=== PATIENT | female | born 1990 | race Caucasian/White ===

== ENCOUNTER 2019-01-27 04:52 | Inpatient (IN) ==
[2019-01-27] MEDS ORDERED: OXYTOCIN 30 UNITS/500 ML BAG IV PRN ×2 (05:31→16:57)
[2019-01-27] MEDS ORDERED: ePHEDrine sulfate 50 MG/ML AMP ONE (05:38)
[2019-01-27] MEDS ORDERED: fentaNYL 2MCG/ML ROPIV 1.25MG/ML 100 ML BAG EPI ONE (05:38)
[2019-01-27] MEDS ORDERED: BUPIVACAINE 0.25% 30 ML VIAL ONE (05:38)
[2019-01-27] MEDS ORDERED: fentaNYL citrate 100 MCG/2 ML VIAL ONE (05:38)
[2019-01-27] MEDS: LACTATED RINGER'S 1,000 ML IV PRN ×4 (05:40→11:27)
[2019-01-27 05:59] LABS: Hematocrit (blood only) 37.5 % (37-47); Hemoglobin 12.7 g/dL (12.0-16.0); Mean Corpuscular Hemoglobin 29.8 pg (25-34); Mean Platelet Volume 10.1 fL (7.4-10.4); Platelet Count 247 K/uL (130-400); RDW Coefficient of Variation 13.1 % (11.5-14.5); RDW Standard Deviation 41.7 fL (36.4-46.3); Red Blood Count 4.26 M/uL (4.2-5.4); White Blood Count 17.39 K/uL (4.8-10.8)
[2019-01-27 06:01] LABS: Mean Corpuscular Hgb Conc 33.9 g/dL (32-36)
--- NOTE | 2019-01-27 06:17 | Anesthesiology Consultation ---
Date of Service January 27, 2019 Assessment & Plan (1) Encounter for pre-operative examination: Chart Review Chart Review: Acceptable Risk for Labor Epidural History Height/Weight Height: 5 ft 10 in Weight: 114.305 kg Allergies Allergy/AdvReac Type Severity Reaction Status Date / Time No Known Drug Allergies Allergy Abdominal Verified 01/25/19 11:44 Pain Medications Home Medications Medication Instructions Recorded Confirmed Last Taken [id number] fumarate-FA 1 tab PO DAILY 01/12/19 01/27/19 01/26/19 21:00 [] docusate sodium [Colace] 100 mg PO DAILY 01/12/19 01/27/19 01/26/19 21:00 triamcinolone acetonide 1 applic TOPICAL BID PRN 01/12/19 01/27/19 01/26/19 21:00 Past Medical History Medical History Eczema Varicella Past Family History Family History Father Hypertension Mother Breast cancer Factor V Leiden Grandfather (Paternal) Diabetes Hypertension Grandmother Hypertension Pure hypercholesterolemia Past Surgical History Surgical History History of colonoscopy S/P cholecystectomy Social History Smoking Status: Never smoker Do You Dip or Chew Tobacco: No Hx Alcohol Use: No Hx Substance Use: No substance use type: does not use Physical Exam Vital Signs Last Vital Signs Temp 36.4 C L 01/27/19 05:07 Pulse 97 H 01/27/19 06:14 Resp 18 01/27/19 05:07 BP 118/76 01/27/19 05:07 Pulse Ox 98 01/27/19 06:14 Testing Laboratory Results 01/27/19 05:48
[2019-01-27] MEDS ORDERED: ePHEDrine sulfate 50 MG/ML AMP IV PRN (06:56)
[2019-01-27] MEDS ORDERED: NALOXONE HCL 0.4 MG/1 ML VIAL/CARP IV PRN (06:56)
[2019-01-27] MEDS ORDERED: ONDANSETRON INJ 2 MG/ML 2 ML VIAL IV PRN (06:56)
[2019-01-27] MEDS ORDERED: NALOXONE HCL 1 MG in SODIUM CHLORIDE 0.9% 1000ML 1,000 ML IV PRN (06:56)
[2019-01-27] MEDS: fentaNYL 2MCG/ML ROPIV 1.25MG/ML 100 ML BAG EPI PRN ×2 (07:03→14:27)
[2019-01-27] MEDS ORDERED: Nursing to Pharmacy Communication ONE (07:26)
--- NOTE | 2019-01-27 07:36 | History & Physical Report ---
Date of Service January 27, 2019 39+ primip presents in active labor. GBS neg, uncomplicated Assessment & Plan (1) Normal labor: admit, as 3cm. Epidural requested. Cx now 5cm. No membranes palpated, although no definitive LOF or ROM moment. Monitor History of Present Illness Primary Care Provider: NO PCP Allergies Allergy/AdvReac Type Severity Reaction Status Date / Time No Known Drug Allergies Allergy Abdominal Verified 01/25/19 11:44 Pain Home Medications Home Medications Medication Instructions Recorded Confirmed Type [id number] fumarate-FA 1 tab PO DAILY 01/12/19 01/27/19 History [] docusate sodium [Colace] 100 mg PO DAILY 01/12/19 01/27/19 History triamcinolone acetonide 1 applic TOPICAL BID PRN 01/12/19 01/27/19 History Patient History Medical History Eczema Varicella Surgical History History of colonoscopy S/P cholecystectomy Family History Father Hypertension Mother Breast cancer Factor V Leiden Grandfather (Paternal) Diabetes Hypertension Grandmother Hypertension Pure hypercholesterolemia Social History (Updated 10/13/18 @ 11:29 by Rebecca Paez) Preferred Language: Portuguese Communication Ability: 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 Beliefs That Will Affect Care: None marital status: Single marital status details: fob not involved Current Living Situation: Parent and Family Current Living Situation Comment: Lives with parents current occupational status: employed current occupation: [employer] Other Information That Helps Us Care for You: No Feels Safe at Home: Yes Safety Concerns: Feels Safe At This Time Smoking Status: Never smoker Do You Dip or Chew Tobacco: No ; Second Hand Exposure: No ; Tobacco Cessation Education Requested by Patient: No Hx Alcohol Use: No Hx Substance Use: No Physical Exam Constitutional: WD/WN, vitals as above Respiratory: normal respiratory effort, lungs clear to auscultation Cardiovascular: RRR, no murmur, no edema Genitourinary: Manual OB Exam: + cervical dilation 5 cm, + cervical effacement 90% and + station -1 OB Exam Monitor Tracing: + external FHT monitor used Results & Data Vital Signs (Past 12 Hours) Vital Signs Temp Pulse Resp BP Pulse Ox 01/27/19 07:29 103 H 107/60 100 01/27/19 07:24 89 100/56 L 100 01/27/19 07:19 93 H 100 01/27/19 07:18 95 H 101/57 L 01/27/19 07:14 108 H 99 01/27/19 07:11 113 H 99/60 L 01/27/19 07:09 96 H 99/56 L 100 01/27/19 07:07 99 H 96/55 L 01/27/19 07:05 99.0 F 78 18 87/52 L 01/27/19 07:04 90 98 01/27/19 07:03 81 91/50 L 01/27/19 07:01 100 H 93/55 L 01/27/19 06:59 72 86/51 L 100 01/27/19 06:57 97 H 87/54 L 01/27/19 06:55 81 88/53 L 01/27/19 06:54 87 99 01/27/19 06:53 89 97/55 L 01/27/19 06:51 83 98/57 L 01/27/19 06:49 91 H 105/59 L 98 01/27/19 06:47 98 H 108/53 L 01/27/19 06:44 105 H 98 01/27/19 06:39 109 H 99 01/27/19 06:34 112 H 99 01/27/19 06:29 113 H 98 01/27/19 06:28 107 H 124/73 01/27/19 06:24 102 H 124/67 98 01/27/19 06:19 100 H 97 01/27/19 06:14 97 H 98 01/27/19 06:09 92 H 99 01/27/19 06:04 102 H 100 01/27/19 05:59 101 H 100 01/27/19 05:54 102 H 97 01/27/19 05:07 97.5 F L 105 H 18 118/76 01/27/19 05:06 105 H 118/76
[2019-01-27] MEDS ORDERED: BENZOCAINE 20% AER SPR 82.5 GM CAN EXT ONE (07:49)
--- NOTE | 2019-01-27 08:41 | Obstetrical Progress Note ---
Date of Service January 27, 2019 Subjective feels comfortable, aware i am assuming care. Physical Exam Constitutional: WD/WN, vitals as above Neurologic: grossly normal Psychiatric: A+Ox3, euthymic affect Genitourinary: OB Exam Monitor Tracing: + external FHT monitor used (140 mod variability ), + external uterine monitor used (q2-3), + category I and + normal FHT variability Results & Data Vital Signs (Past 12 Hours) Vital Signs Temp Pulse Resp BP Pulse Ox 01/27/19 08:30 89 106/57 L 01/27/19 08:29 90 98 01/27/19 08:24 90 99 01/27/19 08:19 87 99 01/27/19 08:16 86 110/57 L 01/27/19 08:14 93 H 98 01/27/19 08:09 98 H 97 01/27/19 08:04 96 H 97 01/27/19 08:00 90 116/63 01/27/19 07:59 89 98 01/27/19 07:54 90 98 01/27/19 07:49 98 H 98 01/27/19 07:45 95 H 112/61 01/27/19 07:44 94 H 99 01/27/19 07:39 102 H 99 01/27/19 07:34 111 H 100 01/27/19 07:29 103 H 107/60 100 01/27/19 07:24 89 100/56 L 100 01/27/19 07:19 93 H 100 01/27/19 07:18 95 H 101/57 L 01/27/19 07:14 108 H 99 01/27/19 07:11 113 H 99/60 L 01/27/19 07:09 96 H 99/56 L 100 01/27/19 07:07 99 H 96/55 L 01/27/19 07:05 99.0 F 78 18 87/52 L 01/27/19 07:04 90 98 01/27/19 07:03 81 91/50 L 01/27/19 07:01 100 H 93/55 L 01/27/19 06:59 72 86/51 L 100 01/27/19 06:57 97 H 87/54 L 01/27/19 06:55 81 88/53 L 01/27/19 06:54 87 99 01/27/19 06:53 89 97/55 L 01/27/19 06:51 83 98/57 L 01/27/19 06:49 91 H 105/59 L 98 01/27/19 06:47 98 H 108/53 L 01/27/19 06:44 105 H 98 01/27/19 06:39 109 H 99 01/27/19 06:34 112 H 99 01/27/19 06:29 113 H 98 01/27/19 06:28 107 H 124/73 01/27/19 06:24 102 H 124/67 98 01/27/19 06:19 100 H 97 01/27/19 06:14 97 H 98 01/27/19 06:09 92 H 99 01/27/19 06:04 102 H 100 01/27/19 05:59 101 H 100 01/27/19 05:54 102 H 97 01/27/19 05:07 97.5 F L 105 H 18 118/76 01/27/19 05:06 105 H 118/76 PG Care Time/CCT Total # of Minutes Spent Total Time Spent with Patient: Total time spent is greater than 50% in coordination of care (as documented) at patient's floor/unit and/or counseling patient:
--- NOTE | 2019-01-27 09:41 | Obstetrical Progress Note ---
Date of Service January 27, 2019 Assessment & Plan (1) Normal labor: doing well, good cx change. fhts categ 1 to 2. anticip 2nd stage soon. Subjective comfortable with epidural Physical Exam Constitutional: WD/WN, vitals as above Genitourinary: Manual OB Exam: + cervical dilation (9), + cervical effacement 100% and + station 0 OB Exam Monitor Tracing: + external FHT monitor used (155 mod variability, variables, now spont accels), + external uterine monitor used (q2), + category II, + normal FHT variability and + variable decelerations Results & Data Vital Signs (Past 12 Hours) Vital Signs Temp Pulse Resp BP Pulse Ox 01/27/19 09:34 99 H 96 01/27/19 09:33 100 H 121/63 93 01/27/19 09:29 103 H 97 01/27/19 09:24 103 H 96 01/27/19 09:19 96 H 97 01/27/19 09:16 99.7 F H 88 16 119/59 L 01/27/19 09:15 87 93 01/27/19 09:14 70 99 01/27/19 09:09 97 H 97 01/27/19 09:04 93 H 96 01/27/19 09:02 86 109/57 L 94 01/27/19 08:59 92 H 96 01/27/19 08:54 86 95 01/27/19 08:49 88 96 01/27/19 08:46 83 107/58 L 01/27/19 08:44 85 95 01/27/19 08:39 90 96 01/27/19 08:34 92 H 96 01/27/19 08:30 89 106/57 L 01/27/19 08:29 90 98 01/27/19 08:24 90 99 01/27/19 08:19 87 99 01/27/19 08:16 86 110/57 L 01/27/19 08:14 93 H 98 01/27/19 08:09 98 H 97 01/27/19 08:04 96 H 97 01/27/19 08:00 90 116/63 01/27/19 07:59 89 98 01/27/19 07:54 90 98 01/27/19 07:49 98 H 98 01/27/19 07:45 95 H 112/61 01/27/19 07:44 94 H 99 01/27/19 07:39 102 H 99 01/27/19 07:34 111 H 100 01/27/19 07:29 103 H 107/60 100 01/27/19 07:24 89 100/56 L 100 01/27/19 07:19 93 H 100 01/27/19 07:18 95 H 101/57 L 01/27/19 07:14 108 H 99 01/27/19 07:11 113 H 99/60 L 01/27/19 07:09 96 H 99/56 L 100 01/27/19 07:07 99 H 96/55 L 01/27/19 07:05 99.0 F 78 18 87/52 L 01/27/19 07:04 90 98 01/27/19 07:03 81 91/50 L 01/27/19 07:01 100 H 93/55 L 01/27/19 06:59 72 86/51 L 100 01/27/19 06:57 97 H 87/54 L 01/27/19 06:55 81 88/53 L 01/27/19 06:54 87 99 01/27/19 06:53 89 97/55 L 01/27/19 06:51 83 98/57 L 01/27/19 06:49 91 H 105/59 L 98 01/27/19 06:47 98 H 108/53 L 01/27/19 06:44 105 H 98 01/27/19 06:39 109 H 99 01/27/19 06:34 112 H 99 01/27/19 06:29 113 H 98 01/27/19 06:28 107 H 124/73 01/27/19 06:24 102 H 124/67 98 01/27/19 06:19 100 H 97 01/27/19 06:14 97 H 98 01/27/19 06:09 92 H 99 01/27/19 06:04 102 H 100 01/27/19 05:59 101 H 100 01/27/19 05:54 102 H 97 01/27/19 05:07 97.5 F L 105 H 18 118/76 01/27/19 05:06 105 H 118/76 PG Care Time/CCT Total # of Minutes Spent Total Time Spent with Patient: Total time spent is greater than 50% in coordination of care (as documented) at patient's floor/unit and/or counseling patient:
--- NOTE | 2019-01-27 15:01 | Obstetrical Progress Note ---
Date of Service January 27, 2019 Assessment & Plan (1) Normal labor: good progress, fhts 1 Subjective pushing effectively Physical Exam Constitutional: WD/WN, vitals as above Genitourinary: Manual OB Exam: + cervical dilation 10 cm, + cervical effacement 100% and + station + 3 OB Exam Monitor Tracing: + external FHT monitor used (140 mod variability, reactive ), + external uterine monitor used (q2-3), + category I and + normal FHT variability Results & Data Vital Signs (Past 12 Hours) Vital Signs Temp Pulse Resp BP Pulse Ox 01/27/19 14:57 138 H 86 L 01/27/19 14:56 124 H 97 01/27/19 14:51 115 H 93 01/27/19 14:47 96 H 119/61 01/27/19 14:45 111 H 95 01/27/19 14:40 100 H 91 01/27/19 14:35 141 H 90 01/27/19 14:31 102 H 24 116/64 01/27/19 14:30 100 H 91 01/27/19 14:27 97 H 94 01/27/19 14:25 107 H 94 01/27/19 14:20 140 H 95 01/27/19 14:16 146 H 108/57 L 01/27/19 14:15 156 H 96 01/27/19 14:10 109 H 96 01/27/19 14:05 110 H 97 01/27/19 14:01 105 H 115/58 L 01/27/19 14:00 105 H 96 01/27/19 13:55 105 H 98 01/27/19 13:53 114 H 93 01/27/19 13:49 121 H 90 01/27/19 13:47 115 H 93 01/27/19 13:46 121 H 22 142/77 H 01/27/19 13:44 115 H 92 01/27/19 13:42 121 H 93 01/27/19 13:39 116 H 80 L 01/27/19 13:36 125 H 93 01/27/19 13:34 124 H 98 01/27/19 13:32 99.5 F 22 01/27/19 13:31 122 H 143/99 H 01/27/19 13:30 126 H 93 01/27/19 13:29 126 H 97 01/27/19 13:24 120 H 92 12/05/19 13:19 124 H 91 01/27/19 13:15 116 H 130/64 01/27/19 13:14 130 H 97 01/27/19 13:09 122 H 95 01/27/19 13:04 150 H 98 01/27/19 13:01 118 H 137/71 01/27/19 13:00 20 01/27/19 12:59 124 H 98 01/27/19 12:58 130 H 89 L 01/27/19 12:54 117 H 98 01/27/19 12:49 117 H 98 01/27/19 12:47 110 H 138/66 94 01/27/19 12:44 130 H 92 01/27/19 12:42 111 H 93 01/27/19 12:39 111 H 97 01/27/19 12:34 109 H 98 01/27/19 12:31 103 H 111/56 L 01/27/19 12:29 105 H 96 01/27/19 12:25 99.7 F H 16 01/27/19 12:24 109 H 95 01/27/19 12:19 127 H 98 01/27/19 12:17 143 H 169/123 H 94 01/27/19 12:14 119 H 100 01/27/19 12:09 104 H 98 01/27/19 12:04 158 H 98 01/27/19 12:02 125 H 112/60 01/27/19 11:59 112 H 99 01/27/19 11:54 133 H 98 01/27/19 11:49 109 H 97 01/27/19 11:45 107 H 115/56 L 01/27/19 11:44 115 H 97 01/27/19 11:39 108 H 98 01/27/19 11:34 106 H 98 01/27/19 11:30 99 H 120/57 L 01/27/19 11:29 102 H 96 01/27/19 11:24 102 H 98 01/27/19 11:19 100 H 97 01/27/19 11:15 113 H 128/66 01/27/19 11:14 115 H 97 01/27/19 11:09 109 H 97 01/27/19 11:04 113 H 96 01/27/19 11:02 105 H 129/74 93 01/27/19 10:59 99.9 F H 106 H 20 97 01/27/19 10:54 116 H 97 01/27/19 10:49 106 H 97 01/27/19 10:46 105 H 137/68 01/27/19 10:44 112 H 98 01/27/19 10:39 112 H 98 01/27/19 10:34 113 H 97 01/27/19 10:31 108 H 118/63 01/27/19 10:29 111 H 97 01/27/19 10:24 115 H 97 01/27/19 10:19 120 H 97 01/27/19 10:16 117 H 139/75 01/27/19 10:14 114 H 98 01/27/19 10:09 115 H 97 01/27/19 10:04 103 H 97 01/27/19 10:00 105 H 136/76 01/27/19 09:59 110 H 97 01/27/19 09:54 125 H 97 01/27/19 09:49 103 H 97 01/27/19 09:46 110 H 132/76 01/27/19 09:44 97 H 98 01/27/19 09:39 110 H 97 01/27/19 09:34 99 H 96 01/27/19 09:33 100 H 121/63 93 01/27/19 09:29 103 H 97 01/27/19 09:24 103 H 96 01/27/19 09:19 96 H 97 01/27/19 09:16 99.7 F H 88 16 119/59 L 01/27/19 09:15 87 93 01/27/19 09:14 70 99 01/27/19 09:09 97 H 97 01/27/19 09:04 93 H 96 01/27/19 09:02 86 109/57 L 94 01/27/19 08:59 92 H 96 01/27/19 08:54 86 95 01/27/19 08:49 88 96 01/27/19 08:46 83 107/58 L 01/27/19 08:44 85 95 01/27/19 08:39 90 96 01/27/19 08:34 92 H 96 01/27/19 08:30 89 106/57 L 01/27/19 08:29 90 98 01/27/19 08:24 90 99 01/27/19 08:19 87 99 12/05/19 08:16 86 110/57 L 01/27/19 08:14 93 H 98 01/27/19 08:09 98 H 97 01/27/19 08:04 96 H 97 01/27/19 08:00 90 116/63 01/27/19 07:59 89 98 01/27/19 07:54 90 98 01/27/19 07:49 98 H 98 01/27/19 07:45 95 H 112/61 01/27/19 07:44 94 H 99 01/27/19 07:39 102 H 99 01/27/19 07:34 111 H 100 01/27/19 07:29 103 H 107/60 100 01/27/19 07:24 89 100/56 L 100 01/27/19 07:19 93 H 100 01/27/19 07:18 95 H 101/57 L 01/27/19 07:14 108 H 99 01/27/19 07:11 113 H 99/60 L 01/27/19 07:09 96 H 99/56 L 100 01/27/19 07:07 99 H 96/55 L 01/27/19 07:05 99.0 F 78 18 87/52 L 01/27/19 07:04 90 98 01/27/19 07:03 81 91/50 L 01/27/19 07:01 100 H 93/55 L 01/27/19 06:59 72 86/51 L 100 01/27/19 06:57 97 H 87/54 L 01/27/19 06:55 81 88/53 L 01/27/19 06:54 87 99 01/27/19 06:53 89 97/55 L 01/27/19 06:51 83 98/57 L 01/27/19 06:49 91 H 105/59 L 98 01/27/19 06:47 98 H 108/53 L 01/27/19 06:44 105 H 98 01/27/19 06:39 109 H 99 01/27/19 06:34 112 H 99 01/27/19 06:29 113 H 98 01/27/19 06:28 107 H 124/73 01/27/19 06:24 102 H 124/67 98 01/27/19 06:19 100 H 97 01/27/19 06:14 97 H 98 01/27/19 06:09 92 H 99 01/27/19 06:04 102 H 100 01/27/19 05:59 101 H 100 01/27/19 05:54 102 H 97 01/27/19 05:07 97.5 F L 105 H 18 118/76 01/27/19 05:06 105 H 118/76 PG Care Time/CCT Total # of Minutes Spent Total Time Spent with Patient: Total time spent is greater than 50% in coordination of care (as documented) at patient's floor/unit and/or counseling patient:
--- NOTE | 2019-01-27 16:41 | Delivery Summary ---
Vaginal Delivery Summary Date of Service January 27, 2019 The patient dilated to complete and pushed to deliver a viable male infant Apga rs 8 and 9 via over 3rd degree perineal laceration. Mouth and nose bulb suctioned at perineum. Shoulders and body delivered with ease and effective maternal expulsive efforts. Infant was vigorous and crying at . Cord clamped at 30 seconds of life and infant to maternal abdomen where the cord was then doubly clamped and cut. Placenta delivered spontaneously and intact, three-vessel cord. Hemostasis achieved with dilute pitocin and uterine massage and drainage of the bladder for approximately 100 cc under sterile conditions. Cervix and sulci intact. Third degree perineal laceration repaired in multiple layers with 2-0 and 3-0 vicryl. Capsule of sphincter reapproximated with interrupted sutures of 2-0 vicryl circumferentially. Rectal exam performed at end of repair and no sutures in rectum. EBL 300 cc. Mother and baby stable recovery. [facility] Vaginal Delivery Charge Vaginal Delivery Codes: 16099 global code for the antepartum, delivery, and post-
[2019-01-27] MEDS ORDERED: TRIAMCINOLONE ACET 0.5% CR 15 GM TUBE TOP PRN (16:45)
[2019-01-27] MEDS ORDERED: HYDROCORTISONE ACETATE 25 MG SUPP PR PRN (16:45)
[2019-01-27] MEDS ORDERED: BENZOCAINE 20% AER SPR 82.5 GM CAN EXT PRN (16:45)
[2019-01-27] MEDS ORDERED: OXYCODONE/ACETAMINOPHEN 5mg/325mg TAB PO PRN (16:45)
[2019-01-27] MEDS ORDERED: SUPERCREAM 0.870% 15 GM JAR EXT PRN (16:45)
[2019-01-27] MEDS ORDERED: ACETAMINOPHEN 325 MG TAB PO PRN (16:45)
[2019-01-27] MEDS ORDERED: OXYTOCIN 20 UNITS in LACTATED RINGER'S 1,000 ML IV SCH (16:45)
[2019-01-27] MEDS ORDERED: DIPHTHERIA/TETANUS/PERTUSSIS 0.5 ML SYR/VIAL IM ONE (16:57)
[2019-01-27] MEDS: IBUPROFEN 600 MG TAB PO PRN ×2 (18:10→22:14)
--- NOTE | 2019-01-27 19:10 | Anesthesia Procedure Note ---
Date of Service January 27, 2019 Anesthesia Post Epidural Note Vital Signs Vital Signs: Temp Pulse Resp BP Pulse Ox 37.7 C H 117 H 16 147/76 H 100 01/27/19 18:37 01/27/19 18:31 01/27/19 18:37 01/27/19 18:31 01/27/19 16:11 Notes Mental Status: alert / awake / arousable Nausea / Vomiting: adequately controlled Pain: adequately controlled Airway Patency, RR, SpO2: stable & adequate BP & HR: stable & adequate Hydration State: stable & adequate Neuraxial Anesthesia: was administered and sensory block is resolving Anesthetic Complications: no major complications apparent and Pt Satisfied with anesthetic care Epidural: Removed without complications and With tip intact
[2019-01-27] MEDS: DOCUSATE SODIUM 100 MG CAP PO SCH (20:43)
[2019-01-28] MEDS: IBUPROFEN 600 MG TAB PO PRN ×4 (04:21→19:55)
--- NOTE | 2019-01-28 07:34 | Obstetrical Progress Note ---
Date of Service January 28, 2019 Assessment & Plan (1) Normal delivery at term: (2) Third degree perineal laceration: stable, routine care. , rh pos. Subjective Ambulation: ambulating normally Voiding: no voiding problems Diet Tolerance:: regular diet Lochia:: Small Feeding Type:: breast feeding bottom sore, no pain issues. Physical Exam Constitutional WD/WN, vitals as above Respiratory normal respiratory effort, lungs clear to auscultation Cardiovascular Rate/Rhythm: regular rate and regular rhythm Gastrointestinal (Abdomen) Inspection/Auscultation: abdomen normal to inspection Percussion/Palpation: abdomen soft Fundus firm 2cm down Musculoskeletal nt calves no edema Neurologic grossly normal Psychiatric A+Ox3, euthymic affect Results & Data Vital Signs (Past 12 Hours) Vital Signs Temp Pulse Resp BP 01/27/19 23:45 97.9 F 93 H 18 122/67
[2019-01-28] MEDS: DOCUSATE SODIUM 100 MG CAP PO SCH ×2 (08:46→20:54)
[2019-01-28] MEDS: PRENATAL VITAMIN 1 TAB PO SCH (08:46)
--- NOTE | 2019-01-29 06:34 | Obstetrical Progress Note ---
Date of Service <Ronald Baumann MD - Last Filed: 01/29/19 06:37> January 29, 2019 Assessment & Plan <Ronald Baumann MD - Last Filed: 01/29/19 06:37> (1) : PPD#2 doing well, ambulating well, tolerating meals after discharge will have follow-up in 6 weeks Subjective <Ronald Baumann MD - Last Filed: 01/29/19 06:37> Ms. Penny is a 29 y/o female ; PPD #2 following spontaneous vaginal delivery at 39+ weeks; doing well this morning; having minimal abdominal cramping/pain; voiding well; tolerating meals overnight; and able to ambulate some; some persistent spotting with intermittent improvement this morning. Review of Systems Constitutional: denies fever; chills; sweats; headache Respiratory: denies shortness of breath, difficulty breathing Cardiac: denies chest pain; palpitations; chest pressure Breast: denies breast pain : denies dysuria Physical Exam <Ronald Baumann MD - Last Filed: 01/29/19 06:37> General: alert; oriented; no acute distress Cardiac: RRR; no m/g/r Respiratory: CTAB a/p; no wheezes/rales/rhonchi; no increased work of breathing; symmetrical chest rise; no respiratory distress Abdomen: soft; NT/ND; bowel sounds positive Uterus: uterine fundus firm; palpable 2cm below umbilicus Lower extrem: no lower extremity edema or swelling; no deep calf pain; Elvis's sign negative b/l Results & Data <Ronald Baumann MD - Last Filed: 01/29/19 06:37> Vital Signs (Past 12 Hours) Vital Signs Temp Pulse Resp BP 01/29/19 00:00 36.7 C 84 18 126/73 01/28/19 20:35 36.8 C 93 H 18 128/75 Medications Administered Current Inpatient Medications Acetaminophen (Tylenol) 650 mg PO Q6H PRN PRN Reason: Pain/LLAMAS/Fever Stop: 02/26/19 16:44 Benzocaine (Dermoplast Pain Relieving [place]) 1 appln EXT PRN PRN PRN Reason: Perineal Discomfort Stop: 02/26/19 16:44 Last Admin: 01/28/19 08:45 Dose: 1 appln Documented by: Cocaine HCl (Supercream 0.870%) 1 gm EXT BID PRN PRN Reason: Hemorrhoidal Inflammation Stop: 02/10/19 16:44 Docusate Sodium (Colace) 100 mg PO DAILY@08,21 [facility] Stop: 02/26/19 20:59 Last Admin: 01/28/19 20:54 Dose: 100 mg Documented by: Hydrocortisone (Anusol Hc) [address] BID PRN PRN Reason: Hemorrhoidal Inflammation Stop: 02/26/19 16:44 Oxytocin 20 units/ Lactated (Ringer's) 1,002 mls @ 0 mls/hr IV .Q0M [facility] Stop: 02/26/19 16:44 Last Infusion: 01/27/19 22:11 Dose: 0 mls/hr Documented by: Oxytocin (Pitocin) 30 units in 500 mls @ 333.333 mls/hr IV .Q1H30M PRN; Protocol PRN Reason: Bleeding Control Stop: 02/26/19 16:56 Ibuprofen (Motrin) 600 mg PO Q4H PRN PRN Reason: Pain/LLAMAS/Cramping/Fever Stop: 02/26/19 16:44 Last Admin: 01/28/19 19:55 Dose: 600 mg Documented by: Oxycodone/Acetaminophen (Percocet 5mg/325mg) 1 tab PO Q4H PRN PRN Reason: Pain not relieved by... Stop: 02/10/19 16:44 Prenat Multivit/Textile Screen Maker/Iron/Folic Ac ( Vitamin) 1 tab PO DAILY@08 [facility] Stop: 02/27/19 07:59 Last Admin: 01/28/19 08:46 Dose: 1 tab Documented by: Triamcinolone Acetonide (Kenalog 0.5%) 1 appln TOP BID PRN PRN Reason: Rash Stop: 02/26/19 16:44 <Venus Langley MD - Last Filed: 01/29/19 08:10> Co-Signing Physician Notes I have reviewed the resident's note and examined the patient myself, and agree with the note above. Resident Activity Tracking <Ronald Baumann MD - Last Filed: 01/29/19 06:37> Resident Involvement: Resident Care Provided Care Provided: OB Delivery
[2019-01-29 06:43] LABS: Hemoglobin 10.4 g/dL (12.0-16.0)
[2019-01-29] MEDS: IBUPROFEN 600 MG TAB PO PRN ×2 (07:42→11:57)
[2019-01-29] MEDS: DOCUSATE SODIUM 100 MG CAP PO SCH (09:48)
[2019-01-29] MEDS: PRENATAL VITAMIN 1 TAB PO SCH (09:48)
== END 2019-01-29 12:40 | disposition home or self-care (01) | DRG 768 ==
LOC: OPB 04:52 → 4S1 04:58 → 4S2 19:08